=== PATIENT | male | born 1955 | race Caucasian/White ===

== ENCOUNTER → 2018-01-14 | Outpatient (CLI) | payer BC ==
[~2018-01-14] VITALS: Ht 177.8 cm; Wt 74.4 kg
[~2018-01-14] MED LIST: REGADENOSON 0.4 MG/5 ML PF SYG IVP SCH
== END | disposition home or self-care (01) ==
LOC: SHCH 07:52
PROVIDERS: ATTEND Internal Medicine Cardiovascular Disease
DX: I20.9 Angina pectoris, unspecified (principal); I47.2 Ventricular tachycardia; Z95.0 Presence of cardiac pacemaker
CPT/HCPCS: 78452; 93017; 96374; A9500 ×2; J2785

== ENCOUNTER → 2021-09-29 | Outpatient (CLI) | payer BC | END | disposition home or self-care (01) | LOC: RAH 12:34 | PROVIDERS: ATTEND Physical Medicine & Rehabilitation | DX: M47.816 Spondylosis without myelopathy or radiculopathy, lumbar region (principal); M43.10 Spondylolisthesis, site unspecified | CPT/HCPCS: 72110 ==

== ENCOUNTER → 2022-02-06 | Outpatient (CLI) | payer BC, MEDICARE ==
[~2022-02-06] VITALS: Ht 177.8 cm; Wt 72.6 kg
== END | disposition home or self-care (01) ==
LOC: SHCH 08:52
PROVIDERS: ATTEND Internal Medicine Cardiovascular Disease
DX: I25.10 Atherosclerotic heart disease of native coronary artery without angina pectoris (principal); I44.2 Atrioventricular block, complete; Z95.0 Presence of cardiac pacemaker
CPT/HCPCS: 78452; 93017; 96374; A9500 ×2; J2785

== ENCOUNTER → 2022-08-07 | Outpatient (CLI) | payer BC, MEDICARE | END | disposition home or self-care (01) | LOC: SHCH 08:57 | PROVIDERS: ATTEND Internal Medicine Cardiovascular Disease | DX: I48.0 Paroxysmal atrial fibrillation (principal) | CPT/HCPCS: 93306 ==

== ENCOUNTER 2024-06-03 10:40 | Day surgery (SDC) | payer OTHER ==
[~2024-06-03] VITALS: Ht 177.8 cm; Wt 69.4 kg
[2024-06-03] VITALS (12 sets, daily range): BP systolic 116–145; BP diastolic 67–83; PULSE 60–82; RESP 15–17
[~2024-06-03 10:40] MED LIST changes: +AMLO-258 PO; +APIX5TAB PO; +ATOR10 PO; +OLME40TA18 PO; -REGADENOSON 0.4 MG/5 ML PF SYG IVP SCH
[2024-06-03] MEDS: 0.9%NACL 1000ML 1,000 ML IV ONE (11:17)
[2024-06-03] MEDS ORDERED: LIDOCAINE PF 100MG/5ML (2%) SYRINGE 5ML ONE (14:41)
== END 2024-06-03 15:55 | disposition home or self-care (01) ==
LOC: ENDO 10:40 → DAH 10:40 → ENDO 15:55
PROVIDERS: ATTEND Internal Medicine Gastroenterology
DX: Z12.11 Encounter for screening for malignant neoplasm of colon (principal); K62.1 Rectal polyp; K64.0 First degree hemorrhoids; I10 Essential (primary) hypertension; E78.5 Hyperlipidemia, unspecified; I25.10 Atherosclerotic heart disease of native coronary artery without angina pectoris; Z79.01 Long term (current) use of anticoagulants; Z95.0 Presence of cardiac pacemaker; Z79.899 Other long term (current) drug therapy
CPT/HCPCS: 45380; 88305; J7030; J2001

== ENCOUNTER → 2024-09-24 | Outpatient (CLI) | payer OTHER | END | disposition home or self-care (01) | LOC: SHCH 14:17 | PROVIDERS: ATTEND Internal Medicine Cardiovascular Disease | DX: I44.2 Atrioventricular block, complete (principal) | CPT/HCPCS: 93306 ==

== ENCOUNTER → 2025-09-22 | Outpatient (CLI) | payer OTHER ==
[~2025-09-22] VITALS: Ht 177.8 cm; Wt 72.1 kg
[~2025-09-22] MED LIST changes: +ATOR40TA71 PO
--- NOTE | 2025-09-22 15:28 | EKG ---
[facility] Test Date: 2025-09-22 Test Time: 15:14:54 Pat Name: ARNULFO JOSUE Department: [facility] Room: Gender: M It Analyst: [id number] : 1955 Requested By: ARLINE CANELA Order Number: [id number] Reading MD: Rigo Ruiz Measurements Intervals [place] Rate: 56 P: 0 CA: 195 QRS: -77 QRSD: 153 T: 59 QT: 456 QTc: 441 Interpretive Statements Atrial-ventricular dual-paced complexes No previous ECG available for comparison Electronically Signed On 09-22-2025 18:24:14 [employer] by Rigo Ruiz Please click the below link to view image of tracing.
[2025-09-22 15:41] LABS: IMMATURE GRANULOCYTE ABSOLUTE 0.02 K/uL (0-1); NUCLEATED RED BLOOD CELLS 0.0 % (0.0-0.19); PLATELET COUNT (AUTO) 243 K/uL (130-400); RED BLOOD CELL COUNT(AUTO) 4.52 MIL/uL (4.50-6.20); RED CELL DISTRIBUTION WIDTH 12.5 % (11.0-15.5); WHITE BLOOD COUNT (AUTO) 5.4 K/uL (4.8-10.8)
[2025-09-22 15:53] VITALS: BP 145/71; PULSE 75; RESP 18; TEMP 97.5
[2025-09-22 16:01] LABS: INR 1.13 (0.85-1.15)
[2025-09-22 16:02] LABS: CREATININE 0.8 mg/dL (0.5-1.3); GLOMERULAR FILTR. RATE CALC 95.0 mL/min (>90); GLUCOSE,RANDOM 95.0 mg/dL (70-105); SODIUM SERUM 144.0 mmol/L (136-145); UREA NITROGEN, BLOOD 16.0 mg/dL (7-18)
[2025-09-22 16:02] LABS: APPEARANCE,URINE CLEAR (CLEAR); GLUCOSE, URINE (UA) NEGATIVE (NEGATIVE); LEUKOCYTE ESTERASE ,URINE NEGATIVE Leu/uL (NEGATIVE); NITRATE,URINE NEGATIVE (NEGATIVE); OCCULT BLOOD,URINE NEGATIVE (NEGATIVE)
[2025-09-22 16:03] LABS: ADD UA MICROSCOPIC NO
--- NOTE | 2025-09-22 19:41 | HMCIMG ---
STUDY: X-RAY OF THE CHEST, 1 VIEW HISTORY: Preoperative evaluation. TECHNIQUE: A single frontal view of the chest is submitted for interpretation. COMPARISON: None provided. FINDINGS: Pulmonary mak: Lungs are clear without focal consolidation, pulmonary edema, or suspicious pulmonary nodule. No evident interstitial infiltrates. Cardiac silhouette: Cardiac silhouette is within normal limits for size and contour on this projection. Mediastinum and natty: Mediastinal contours and natty are unremarkable without widening or discrete mass. Osseous structures: Visualized ribs, clavicles, scapulae, and thoracic spine demonstrate no acute osseous abnormality. Miscellaneous: A triple-lead cardiac pacemaker is present in the left chest wall with intact-appearing leads projecting toward the right atrium, right ventricle, and coronary sinus region in expected positions. No pleural effusion, pneumothorax, or free subdiaphragmatic air is identified. IMPRESSION: * No acute cardiopulmonary abnormality identified. * Triple-lead cardiac pacemaker in the left chest wall with intact-appearing leads in expected positions and no radiographic evidence of device-related complication; from a chest radiographic standpoint, no acute thoracic process is seen that would preclude proceeding with planned surgery, assuming clinical and anesthetic evaluation are satisfactory. /[place]
== END | disposition home or self-care (01) ==
LOC: EDSTATUS 14:00 → DAH 14:31
PROVIDERS: ATTEND Internal Medicine Cardiovascular Disease
DX: Z01.818 Encounter for other preprocedural examination (principal); I25.119 Atherosclerotic heart disease of native coronary artery with unspecified angina pectoris; I48.91 Unspecified atrial fibrillation; Z45.018 Encounter for adjustment and management of other part of cardiac pacemaker
CPT/HCPCS: 36415; 71045; 80048; 81003; 83880; 85025; 85610; 85730; 93005